=== PATIENT | female | born 1990 | race Two or more races ===

== ENCOUNTER 2024-07-18 12:28 | Emergency (ER) | payer BC ==
[~2024-07-18] VITALS: Ht 170.2 cm; Wt 74.8 kg
[2024-07-18] MEDS ORDERED: METOCLOPRAMIDE HCL 5 MG/ML VIAL IV ONE (14:00)
[2024-07-18] MEDS ORDERED: 0.9 % SODIUM CHLORIDE 1,000 ML IV SCH (14:00)
[2024-07-18] MEDS ORDERED: METOCLOPRAMIDE HCL 5 MG/ML VIAL ONE (14:15)
[2024-07-18 14:31] LABS: HEMOGLOBIN 13.2 g/dL (12.0-15.00); MEAN CELL VOLUME 91.3 fL (80.00-100.00); MEAN CORPUSCULAR HEMOGLOBIN 31.8 pg (27.00-32.0); MEAN CORPUSCULAR HGB CONC 34.8 g/dl (32.0-36.0); PLATELET COUNT 212 K/uL (150-450); RED BLOOD COUNT 4.16 M/uL (4.00-6.00); RED CELL DISTRIBUTION WIDTH 12.6 % (11.5-14.5)
[2024-07-18 15:27] LABS: CALCIUM 8.9 mg/dL (8.5-10.1); CREATININE SERUM 0.72 mg/dL (0.55-1.02); GFR 91.65; POTASSIUM 3.46 mEq/L (3.5-5.1)
== END 2024-07-18 18:08 | disposition home or self-care (01) ==
LOC: ER 12:30
PROVIDERS: Emergency Medicine
DX: O21.0 Mild hyperemesis gravidarum (principal)